=== PATIENT | male | born 1955 | race Caucasian/White ===

== ENCOUNTER 2017-04-21 10:41 | Emergency (ER) | payer OTHER ==
[~2017-04-21] VITALS: Ht 188 cm; Wt 106.6 kg
[2017-04-21 11:35] VITALS: BP 190/96
[2017-04-21] MEDS ORDERED: FLUORESCEIN SOD 1 MG TEST STRIP RIGHTEYE ONE (11:45)
[2017-04-21] MEDS ORDERED: TETRACAINE HCL 0.5% OPTH(EYE) SOLN 4ML EACHEYE ONE (11:45)
== END 2017-04-21 12:22 | disposition home or self-care (01) ==
LOC: ER 10:41
DX: S00.211A Abrasion of right eyelid and periocular area, initial encounter (principal); H10.31 Unspecified acute conjunctivitis, right eye; X58.XXXA Exposure to other specified factors, initial encounter; Y93.89 Activity, other specified; Y99.0 Civilian activity done for income or pay; Y92.69 Other specified industrial and construction area as the place of occurrence of the external cause